=== PATIENT | male | born 1975 | race Caucasian/White ===

== ENCOUNTER 2021-10-21 22:53 | Emergency (ER) | payer OTHER ==
[~2021-10-21] VITALS: Ht 177.8 cm; Wt 81.7 kg
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
[2021-10-21] MEDS ORDERED: ATORVASTATIN CA80 MG PO (23:07)
[2021-10-21] MEDS ORDERED: GABAPENTIN 100100 MG PO (23:08)
[2021-10-21] MEDS ORDERED: MEDROXYPROGESTE10 MG PO (23:08)
[2021-10-21] MEDS ORDERED: TOPAMAX 100 MG100 MG PO (23:08)
[2021-10-21] MEDS ORDERED: EZETIMIBE10 MG PO (23:08)
[2021-10-21] MEDS ORDERED: MIRTAZAPINE45 MG PO (23:08)
[2021-10-21] MEDS ORDERED: OMEPRAZOLE40 MG PO (23:08)
[2021-10-21] MEDS ORDERED: CLONAZEPAM 0.50.5 M1 PO (23:09)
[2021-10-21] MEDS ORDERED: TOPIRAMATE50 MG PO (23:09)
[2021-10-21] MEDS ORDERED: TRAMADOL 50 MG50 MG PO (23:09)
[2021-10-21] MEDS ORDERED: CLONAZEPAM 1 MG1 M1 PO (23:09)
[2021-10-21] MEDS ORDERED: LORATIDINE 10 M10 M1 PO (23:10)
[2021-10-21] MEDS ORDERED: LANTUS SUBQ (23:10)
[2021-10-21] MEDS ORDERED: HYDROCODON-ACE1 EAC7 PO (23:11)
[2021-10-21] MEDS ORDERED: NOVOLOG FL100 UNIT/M SUBQ ×2 (23:12)
[2021-10-22 04:30] VITALS: BP 165/91
== END 2021-10-22 00:30 ==
LOC: ER 22:53
DX: M54.2 Cervicalgia (principal); R51.9 Headache, unspecified; I10 Essential (primary) hypertension; E11.9 Type 2 diabetes mellitus without complications; F41.9 Anxiety disorder, unspecified; E78.5 Hyperlipidemia, unspecified; Z79.4 Long term (current) use of insulin; Z79.891 Long term (current) use of opiate analgesic; Z79.1 Long term (current) use of non-steroidal anti-inflammatories (NSAID); Z79.899 Other long term (current) drug therapy; Z88.6 Allergy status to analgesic agent; Z88.5 Allergy status to narcotic agent; Z88.8 Allergy status to other drugs, medicaments and biological substances; Y04.2XXA Assault by strike against or bumped into by another person, initial encounter; Y93.89 Activity, other specified; Y92.89 Other specified places as the place of occurrence of the external cause; Y99.8 Other external cause status